=== PATIENT | female | born 1955 | race Caucasian/White ===

== ENCOUNTER 2021-01-21 10:06 | Outpatient (CLI) | payer OTHER, SELFPAY ==
--- NOTE | ~2021-01-21 | XR_ITS ---
EXAMINATION: XR foot RT standing 2V EXAM DATE: 01/21/2021 10:32 INDICATION: M05.79 - Rheumatoid arthritis with rheumatoid factor of mult. TECHNIQUE: Frontal and lateral projections of the right foot standing. There is no prior study for comparison. FINDINGS: Mild right pes planus. There are small posterior and inferior calcaneal spurs. There appea rs to be soft tissue bunion. There is chronic appearing deformity to the 5th MTP joint. There is juxt a articular osteopenia at the metatarsal heads without definite focal bony erosions identified. There is moderate mid foot, mild 1st digit primary osteoarthritis. There are no acute fractures identifie d. No radiopaque foreign bodies identified. IMPRESSION: Chronic findings without definite erosive change. Reviewed, dictated and finalized at location B. GER MOLECULAR
--- NOTE | ~2021-01-21 | XR_ITS ---
EXAMINATION: XR foot LT standing 2V EXAM DATE: 01/21/2021 10:32 INDICATION: M05.79 - Rheumatoid arthritis with rheumatoid factor of multiple sites without organ or s ystems involvement . TECHNIQUE: Frontal and lateral projections of the left foot. Correlation is made to contralateral fo ot same date. FINDINGS: Small to moderate sized calcaneal spurs. There is mild pes planus. There is moderate polya rticular mid foot, mild 1st digit primary osteoarthritis. Soft tissue bunion formation over the 1st a nd 5th metatarsal heads. Some 2nd through 5th metatarsal head periarticular osteopenia without discre te erosion. There are no acute fractures identified. No radiopaque foreign bodies identified. IMPRESSION: Chronic left foot findings as above. Reviewed, dictated and finalized at location B. ETT ROOM WORKER
--- NOTE | ~2021-01-21 | XR_ITS ---
EXAMINATION: XR hand BI arthritis min 3V EXAM DATE: 01/21/2021 10:32 INDICATION: M05.79 - Rheumatoid arthritis with rheumatoid factor of multiple sites without organ or s ystems involvement . TECHNIQUE: Right hand frontal, lateral and oblique projections obtained and reviewed. Left hand fron clementina, lateral and oblique projections obtained and reviewed. Catchers projection of both hands. There is no prior study for comparison. FINDINGS: There is moderate primary osteoarthritis at the left 3rd distal phalangeal joint. Otherwise mild polyarticular bilateral hand primary osteoarthritis. There are no bony erosions identified. The re are no acute fractures or dislocations identified. There is no subcutaneous gas. The soft tissue is unremarkable. There are no radiopaque foreign bodies. IMPRESSION: Osteoarthritis, left 3rd DIP joint most affected. Reviewed, dictated and finalized at location B. RBARIC TECHNICIAN
== END 2021-01-21 10:07 | disposition home or self-care (01) ==
PROVIDERS: PCP Family Medicine; Visit Provider Internal Medicine
DX: M05.79 Rheumatoid arthritis with rheumatoid factor of multiple sites without organ or systems involvement (principal); M19.042 Primary osteoarthritis, left hand
CPT/HCPCS: 73130; 73620

== ENCOUNTER 2024-09-21 08:33 | Outpatient (CLI) | payer OTHER, SELFPAY ==
--- NOTE | ~2024-09-21 | XR_ITS ---
XR knee LT 3V 09/21/2024 09:09 Indication: Chronic knee pain Procedure: 3 views left knee Comparison: No prior studies for comparison. Findings: Mild tricompartment osteoarthritis. No fracture or traumatic malalignment. No joint effusio n. Osteopenia. Impression: 1: Mild tricompartment osteoarthritis of the left knee. Reviewed, dictated and finalized at location B. PRESSER Impression: 1: Mild tricompartment osteoarthritis of the left knee.
--- NOTE | ~2024-09-21 | XR_ITS ---
EXAMINATION: XR knee RT 3V DATE: 09/21/2024 09:09 INDICATION: Chronic right knee pain. TECHNIQUE: 3 views of right knee including weight-bearing views were obtained. COMPARISON: None. FINDINGS: Alignment is normal. No fracture. There is mild osteoarthritis of lateral and patellofemora l compartments characterized by tiny osteophytes. No knee joint effusion. IMPRESSION: 1. Mild right knee osteoarthritis. Reviewed, dictated and finalized at location A. ROENTGENOLOGIST
== END 2024-09-21 08:34 | disposition home or self-care (01) ==
PROVIDERS: PCP Family Medicine; Visit Provider Physician Assistant
DX: M17.0 Bilateral primary osteoarthritis of knee (principal)
CPT/HCPCS: 73562